=== PATIENT | female | born 1985 | race Caucasian/White ===

== ENCOUNTER 2020-11-07 17:23 | Emergency (ER) | payer BC, OTHER ==
[~2020-11-07] VITALS: Ht 157.5 cm; Wt 60.5 kg
[2020-11-07 17:41] VITALS: BP 94/65
--- NOTE | 2020-11-07 18:41 | NUR ---
GARMENT SUPERVISOR: NO ANSWER X1 FROM LOBBY AT THIS TIME
--- NOTE | 2020-11-07 18:55 | NUR ---
ASSEMBLER INSULATOR: NO ANSWER X2 FROM LOBBY AT THIS TIME
--- NOTE | 2020-11-07 19:17 | NUR ---
SOCIAL WELFARE ADMINISTRATOR: NO ANSWER X3 FROM LOBBY AT THIS TIME
== END 2020-11-07 19:41 | disposition left against medical advice (07) ==
LOC: ED 19:20
DX: R10.31 Right lower quadrant pain (principal); Z53.21 Procedure and treatment not carried out due to patient leaving prior to being seen by health care provider

== ENCOUNTER 2021-01-16 20:19 | Emergency (ER) | payer BC ==
[~2021-01-16] VITALS: Ht 157.5 cm; Wt 62.3 kg
[2021-01-16] MEDS ORDERED: ONDANSETRON ODT 4 MG ONE (20:59)
[2021-01-16] MEDS ORDERED: ACETAMINOPHEN 500 MG TABLET ONE (20:59)
[2021-01-16] MEDS ORDERED: ACETAMINOPHEN 500 MG TABLET PO ONE (21:00)
[2021-01-16] MEDS ORDERED: ONDANSETRON ODT 4 MG PO ONE (21:00)
[2021-01-16 21:25] LABS: BASOPHILS % (AUTO) 0 % (0-1); EOSINOPHILS % (AUTO) 1 % (1-7); LYMPHOCYTES % (AUTO) 16 % (22-44); MEAN CORPUSCULAR HEMOGLOBIN 30.9 pg (27.0-34.8); MEAN CORPUSCULAR HGB CONC 34.5 g/dL (32.4-35.8); MEAN PLATELET VOLUME 7.8 fL (7.4-10.4); MONOCYTES % (AUTO) 8 % (2-9); NEUTROPHILS % (AUTO) 75 % (42-75); PLATELET COUNT 294 x10^3/uL (130-400); RED BLOOD COUNT 3.99 x10^6/uL (3.82-5.3); RED CELL DISTRIBUTION WIDTH 13.1 % (9.6-15.2)
[2021-01-16 21:26] LABS: MD NO
[2021-01-16 21:31] LABS: ANION GAP 7 mmol/L (5-15); CALCIUM 8.8 mg/dL (8.5-10.1); CHLORIDE 108 mmol/L (98-107)
--- NOTE | 2021-01-16 21:32 | NUR ---
resting in bed st on monitor 110s. a&ox4 gcs 15 ivf infusing labs pending, call naik. side rails. as
[2021-01-16 21:35] LABS: ALANINE AMINOTRANSFERASE 21 U/L (12-78); ALKALINE PHOSPHATASE 45 U/L (45-117); BILIRUBIN,TOTAL 0.1 mg/dL (0.2-1.0); CREATININE 0.73 mg/dL (0.55-1.02); TOTAL PROTEIN 6.5 g/dL (6.4-8.2)
[2021-01-16 21:54] LABS: MICROSCOPIC INDICATED
--- NOTE | 2021-01-16 22:13 | NUR ---
STS PAIN RESOLVED AFTER TYLENOL. AWAITING RESULTS. VSS.
--- NOTE | 2021-01-16 22:52 | NUR ---
Report received from DIDI Gilman. This RN to assume care. Awaiting ERP recheck.
[2021-01-16 23:41] VITALS: BP 95/56
--- NOTE | 2021-01-16 23:51 | NUR ---
Discharge instructions given. All questions and concerns addressed. Patient ambulatory with a steady gait. Belongings with patient.
== END 2021-01-16 23:52 | disposition home or self-care (01) ==
LOC: ED 20:37
DX: O26.891 Other specified pregnancy related conditions, first trimester (principal); R10.33 Periumbilical pain; R10.11 Right upper quadrant pain; Z3A.11 11 weeks gestation of pregnancy
CPT/HCPCS: 36415; 76700; 76801; 80053; 81001; 83690; 84702; 84703; 85025; 87086; 99285; Q0162

== ENCOUNTER 2021-05-19 18:50 | Outpatient (CLI) | payer BC ==
[2021-05-19 19:30] VITALS: BP 110/59
== END 2021-05-19 19:56 | disposition home or self-care (01) ==
LOC: LDOP 18:50
PROVIDERS: ATTEND Obstetrics & Gynecology
DX: O09.513 Supervision of elderly primigravida, third trimester (principal); O36.8130 Decreased fetal movements, third trimester, not applicable or unspecified; Z3A.38 38 weeks gestation of pregnancy
CPT/HCPCS: 59025